=== PATIENT | female | born 2000 | race Caucasian/White ===

== ENCOUNTER 2022-04-24 11:40 | Emergency (ER) | payer BC ==
[~2022-04-24] VITALS: Ht 170.2 cm; Wt 72.6 kg
[2022-04-24 11:45] VITALS: BP_SYST 133
[2022-04-24] MEDS ORDERED: LORazepam 2 MG/ML VIAL IVP ONE (12:30)
[2022-04-24] MEDS ORDERED: ONDANSETRON HCL 4 MG/2 ML VIAL IVP ONE (12:30)
[2022-04-24] MEDS ORDERED: NACL 0.9% 1,000 ML IV ONE (12:30)
[2022-04-24 12:40] LABS: BASOPHILS % (AUTO) 0.2 % (0.0-2.0); HEMATOCRIT 43.2 % (36-48); HEMOGLOBIN 14.3 g/dL (12.0-16.0); LYMPHOCYTES # (AUTO) 0.8 K/uL (1.0-5.5); LYMPHOCYTES % (AUTO) 6.9 % (20.5-51.5); MEAN CORPUSCULAR HEMOGLOBIN 29 pg (27-31); MEAN CORPUSCULAR HGB CONC 33 % (32-36); MEAN CORPUSCULAR VOLUME 88 fL (79.0-98.0); MONOCYTES # (AUTO) 0.3 K/uL (0.0-1.0); MONOCYTES % (AUTO) 2.4 % (1.7-9.3); NEUTROPHILS # (AUTO) 11.2 K/uL (1.8-7.7); NEUTROPHILS % (AUTO) 90.5 % (40.0-70.0); PLATELET COUNT (AUTO) 295 K/uL (130-430); RED BLOOD CELL COUNT(AUTO) 4.93 MIL/uL (4.2-6.2); RED CELL DISTRIBUTION WIDTH 13.3 % (9.0-15.0); WHITE BLOOD COUNT (AUTO) 12.4 K/uL (4.5-11.0)
[2022-04-24 12:49] LABS: CALCIUM 8.4 mg/dL (8.4-11.0); CREATININE 0.89 mg/dL (0.55-1.30); POTASSIUM 3.3 mmol/L (3.5-5.1)
[2022-04-24 12:56] LABS: ALBUMIN 3.8 g/dL (3.4-4.8); TOTAL BILIRUBIN 0.7 mg/dL (0.0-1.0)
[2022-04-24 15:19] LABS: BILIRUBIN,URINE NEGATIVE (NEGATIVE); BLOOD, URINE 1+ (NEGATIVE); CLARITY/URINE CLEAR (CLEAR); COLOR,URINE YELLOW (YELLOW); GLUCOSE,URINE NEGATIVE (NEGATIVE); KETONES,URINE 3+ (NEGATIVE); LEUKOCYTE ESTERASE ,URINE TRACE (NEGATIVE); NITRITE, URINE NEGATIVE (NEGATIVE); PROTEIN URINE 1+ (NEGATIVE); UROBILINOGEN,URINE 0.2 (0.2-1.0)
[2022-04-24 15:35] LABS: BACTERIA,URINE FEW /HPF (None Seen); MUCUS,URINE 1+ /LPF (None Seen); RBC,URINE 0-3 /HPF (0-3)
[2022-04-24] MEDS ORDERED: IBUP-1969 PO (15:45)
[2022-04-24] MEDS ORDERED: NITR-85 PO (15:45)
[2022-04-24] MEDS ORDERED: ONDA-8 TL (15:48)
[2022-04-24 15:49] VITALS: BP_SYST 118
== END 2022-04-24 15:49 | disposition home or self-care (01) ==
LOC: SED 11:40
DX: K52.9 Noninfective gastroenteritis and colitis, unspecified (principal)
CPT/HCPCS: 36415; 80053; 81000; 83690; 85025; 96361; 96374; 96375; 99284; J2060; J2405; J7030

== ENCOUNTER 2022-04-25 23:24 | Emergency (ER) | payer BC ==
[~2022-04-25] VITALS: Ht 170.2 cm; Wt 72.6 kg
[~2022-04-25 23:24] MED LIST: IBUP-1969 PO; NITR-85 PO; ONDA-8 TL
--- NOTE | 2022-04-25 23:40 | NUR ---
PT C/O SEVERE VOMITING,ABD PAIN FOR THE LAST 4 HRS, CRYING, SCREAMING IN PAIN AND,HAD CANNABIS 2 DAYS AGO WAS HERE YESTERDAY MORNING FOR UTI SENT HOME ON [employer],PLACED ON RM 8
[2022-04-25] MEDS ORDERED: PROCHLORPERAZINE EDISYLATE 10 MG/2 ML VIAL IVP ONE (23:45)
[2022-04-25] MEDS ORDERED: NACL 0.9% 1,000 ML IV ONE (23:45)
[2022-04-25] MEDS ORDERED: LORazepam 2 MG/ML VIAL IVP ONE (23:45)
[2022-04-25 23:58] VITALS: BP_SYST 145
[2022-04-26 00:25] LABS: CORRECTED WHITE BLOOD COUNT 12.9 K/uL (4.5-11.0); HEMATOCRIT 43.5 % (36-48); HEMOGLOBIN 14.3 g/dL (12.0-16.0); RED BLOOD CELL COUNT(AUTO) 4.97 MIL/uL (4.2-6.2); WHITE BLOOD COUNT (AUTO) 12.9 K/uL (4.5-11.0)
[2022-04-26 00:26] LABS: LYMPHOCYTES % (AUTO) 13.8 % (20.5-51.5); MEAN CORPUSCULAR HEMOGLOBIN 29 pg (27-31); MEAN CORPUSCULAR HGB CONC 33 % (32-36); MEAN CORPUSCULAR VOLUME 88 fL (79.0-98.0); NEUTROPHILS % (AUTO) 77.9 % (40.0-70.0); PLATELET COUNT (AUTO) 301 K/uL (130-430); RED CELL DISTRIBUTION WIDTH 13.6 % (9.0-15.0)
[2022-04-26 00:27] LABS: BASOPHILS % (AUTO) 0.3 % (0.0-2.0); EOSINOPHILS # (AUTO) 0.1 K/uL (0.0-0.4); LYMPHOCYTES # (AUTO) 1.8 K/uL (1.0-5.5); MONOCYTES # (AUTO) 0.9 K/uL (0.0-1.0)
--- NOTE | 2022-04-26 00:29 | NUR ---
PT DRIVEN TO THE ER BY MOTHER, PT PRESENTED TO THE ER WITH SEVERE ABDOMINAL PAIN DO TO UNCONTROLABLE VOMITING APX 5 HOURS AGO, HAD DIARRHEA YESTERDAY. PT MOTHER DOES STATE THAT SHE IS ALSO SUFFERING FROM UTI WHICH STARTED YESTERDEAY. PT IS IN BED RESTING WITH EYS CLOSED, BED LOWERED AND LOCKED RAILS UP. MOTHER AT BEDSIDE, WILL CONTINUE TO MONITOR.
[2022-04-26 00:30] LABS: CALCIUM 8.8 mg/dL (8.4-11.0); CREATININE 1.15 mg/dL (0.55-1.30); POTASSIUM 3.2 mmol/L (3.5-5.1)
[2022-04-26 00:35] LABS: ALBUMIN 4.2 g/dL (3.4-4.8); TOTAL BILIRUBIN 0.8 mg/dL (0.0-1.0)
[2022-04-26] MEDS ORDERED: NACL 0.9% 1,000 ML IV ONE ×2 (02:30)
[2022-04-26] MEDS ORDERED: PHE25 PO (04:32)
[2022-04-26] MEDS ORDERED: COMR25 RC (04:32)
[2022-04-26] MEDS ORDERED: PROCHLORPERAZINE EDISYLATE 10 MG/2 ML VIAL IVP ONE (04:45)
[2022-04-26 04:54] VITALS: BP_SYST 148
--- NOTE | 2022-04-26 04:56 | NUR ---
Patient given written and verbal discharge instructions and verbalizes understanding. ER DR LINDSAY DALEY discussed with patient the results and treatment provided. Patient in stable condition. ID arm band removed. IV catheter removed intact and dressing applied, no active bleeding. Rx of COMPAZINE, PHERNERGAN given. Patient educated on pain management and to follow up with PMD. Pain Scale . Opportunity for questions provided and answered. Medication side effect fact sheet provided.
== END 2022-04-26 04:54 | disposition home or self-care (01) ==
LOC: SED 23:24
DX: R11.10 Vomiting, unspecified (principal); F12.988 Cannabis use, unspecified with other cannabis-induced disorder; Z79.899 Other long term (current) drug therapy
CPT/HCPCS: 36415; 80053; 83690; 84703; 85025; 96361 ×2; 96374; 96375; 96376; 99284; J0780 ×2; J2060; J7030 ×2

== ENCOUNTER 2022-10-02 12:20 | Emergency (ER) | payer BC ==
[~2022-10-02] VITALS: Ht 167.6 cm; Wt 72.6 kg
[2022-10-02 12:20] VITALS: BP_SYST 122
[~2022-10-02 12:20] MED LIST changes: +COMR25 RC; +PHE25 PO
--- NOTE | 2022-10-02 12:29 | NUR ---
Patient triaged and placed in waiting room. VSS and patient appears in no acute distress at this time. Accompanied by MOTHER, awaiting available bed, and MD notified of need for MSE.
--- NOTE | 2022-10-02 12:49 | NUR ---
PT GETTING BLOOD DRAWN AND THEN WILL GO TO BED #5, [employer] AWARE
--- NOTE | 2022-10-02 13:06 | NUR ---
ER at bedside examining patient.
[2022-10-02 13:07] LABS: BASOPHILS # (AUTO) 0.3 K/uL (0.0-0.2); BASOPHILS % (AUTO) 2.8 % (0.0-2.0); EOSINOPHILS % (AUTO) 0.2 % (0.0-4.0); HEMATOCRIT 41.5 % (36-48); HEMOGLOBIN 14.3 g/dL (12.0-16.0); LYMPHOCYTES # (AUTO) 1.5 K/uL (1.0-5.5); LYMPHOCYTES % (AUTO) 13.4 % (20.5-51.5); MEAN CORPUSCULAR HEMOGLOBIN 29 pg (27-31); MEAN CORPUSCULAR HGB CONC 34 % (32-36); MEAN CORPUSCULAR VOLUME 85 fL (79.0-98.0); MONOCYTES # (AUTO) 0.6 K/uL (0.0-1.0); MONOCYTES % (AUTO) 5.6 % (1.7-9.3); NEUTROPHILS # (AUTO) 8.6 K/uL (1.8-7.7); PLATELET COUNT (AUTO) 301 K/uL (130-430); RED BLOOD CELL COUNT(AUTO) 4.87 MIL/uL (4.2-6.2); RED CELL DISTRIBUTION WIDTH 13.1 % (9.0-15.0); WHITE BLOOD COUNT (AUTO) 11.1 K/uL (4.5-11.0)
--- NOTE | 2022-10-02 13:12 | NUR ---
PT UP TO RESTROOM FOR UA
[2022-10-02] MEDS ORDERED: ONDANSETRON HCL 4 MG/2 ML VIAL IVP ONE (13:15)
[2022-10-02] MEDS ORDERED: NACL 0.9% 1,000 ML IV ONE (13:15)
[2022-10-02] MEDS ORDERED: HALOPERIDOL LACTATE 5 MG/ML VIAL IVP ONE (13:15)
[2022-10-02 13:18] LABS: CALCIUM 9.4 mg/dL (8.4-11.0); CREATININE 0.97 mg/dL (0.55-1.30)
[2022-10-02 13:24] LABS: TOTAL BILIRUBIN 0.5 mg/dL (0.0-1.0)
--- NOTE | 2022-10-02 13:25 | NUR ---
PT MEDICATED, APPEARS VERY ANXIOUS AND AGITATED, DEMANDING PAIN MEDS, SPEECH IS PRESSURED AND PT REFUSING TO ALLOW RN TIME TO ANSWER OR EXPLAIN MEDS. MOM AT BEDSIDE.
[2022-10-02] MEDS ORDERED: PANTOPRAZOLE SODIUM 40 MG/VIAL (PROTONIX) IVP ONE (13:45)
[2022-10-02 14:45] VITALS: BP_SYST 128
[2022-10-02 14:45] LABS: BARBITURATE, URINE NEGATIVE (NEG <=200); BENZODIAZEPINE, URINE NEGATIVE (NEG <=150); CANNABINOID, URINE POSITIVE (NEG <=50); COCAINE, URINE NEGATIVE (NEG <=150); METHAMPHETAMINES SCREEN,URINE NEGATIVE (NEG <=500); OPIATE, URINE NEGATIVE (NEG <=100); PHENCYCLIDINE SCREEN,URINE NEGATIVE (NEG <=25); UR TRICYCLIC ANTIDEPRESSANTS NEGATIVE (NEG <=300); URINE AMPHETAMINE NEGATIVE (NEG <=500); URINE METHADONE NEGATIVE (NEG <=200); URINE OXYCODONE SCREEN NEGATIVE (NEG <=100); URINE PROPOXYPHENE SCREEN NEGATIVE (NEG <=300)
--- NOTE | 2022-10-02 14:47 | NUR ---
PT REQUESTING TO SEE MD AND TO BE RELEASED. DR YOUNG TO [facility].
[2022-10-02] MEDS ORDERED: ONDA-8 TL (14:49)
--- NOTE | 2022-10-02 15:04 | NUR ---
Patient given written and verbal discharge instructions and verbalizes understanding. ER MD discussed with patient the results and treatment provided. Patient in stable condition. ID arm band removed. IV catheter removed intact and dressing applied, no active bleeding. Patient educated on pain management and to follow up with PMD. Pain Scale 0. Opportunity for questions provided and answered. Medication side effect fact sheet provided.
== END 2022-10-02 15:04 | disposition home or self-care (01) ==
LOC: SED 12:20
DX: R11.10 Vomiting, unspecified (principal); R10.84 Generalized abdominal pain; R19.7 Diarrhea, unspecified; F12.90 Cannabis use, unspecified, uncomplicated; Z88.0 Allergy status to penicillin; Z79.899 Other long term (current) drug therapy
CPT/HCPCS: 99284; 96374; 96375; 96361; 80307; 80053; 83690; 85025; 36415; 81025; J1630; J2405; C9113; J7030